=== PATIENT | female | born 1995 ===

== ENCOUNTER 2018-11-09 13:59 | Emergency (ER) | payer OTHER ==
--- NOTE | 2018-11-09 14:39 | UC ---
Dizzy HPI HPI Summary: Patient is a 23yo female presenting with dizziness and nausea that happened while she was at lunch with friends. She stated she first felt a cramping in her lower abdomen and got up to take aleve for the pain. She rated the pain 6/ 10 and described it as a sharp pain. When she sat down again, she says her vision went blurry and she saw spots and became lightheaded. She did not lose consciousness or hit her head. She did not drive herself here. She states the initial pain felt like menstrual cramps or something similar to the ovarian cysts she has had in the past. Patient says she thinks her LMP was November 2017. Her OBGYN put her on a control pill and she skips her periods every month with that. She had similar symptoms of a cyst last month and was seen at [facility] where they gave her a referral to an OBGYN at [facility] to have an ultrasound done. That appointment is scheduled for next Tuesday. Her pain and nausea have since resolved. Patient states she ate breakfast and lunch today and says she is well hydrated. She denies headache and fever. She denies vomiting and changes in BMs. Denies burning, frequency, urgency with urination. Denies any sexual activity or possibility of . - History Of Current Complaint Chief Complaint: UCAbdominalPain Stated Complaint: NAUSEOUS Time Seen by Provider: 11/09/18 14:08 Hx Obtained From: Patient Hx Last Menstrual Period: bcp Onset/Duration: Sudden Onset Severity Initially: Mild Severity Currently: Mild Pain Intensity: 1 Pain Scale Used: 0-10 Numeric Associated Signs And Symptoms: Negative: SOB, Palpitations - Allergies/Home Medications Allergies/Adverse Reactions: Allergies Allergy/AdvReac Type Severity Reaction Status Date / Time No Known Allergies Allergy Verified 11/09/18 14:07 Home Medications: Home Medications Norethindr/Eth Estradiol(Nf) [Lo Loestrin Fe (NF)] 1 tab PO DAILY 11/09/18 [ History Confirmed 11/09/18] PMH/Surg Hx/FS Hx/Imm Hx GI/ History: Other - ovarian cysts - Surgical History Surgical History: Yes Surgery Procedure, Year, and Place: wisdom teeth - Family History Known Family History: Positive: Unknown - Social History Alcohol Use: None Substance Use Type: None Smoking Status (MU): Never Smoked Tobacco Review of Systems All Other Systems Reviewed And Are Negative: No Constitutional: Negative: Fever, Chills, Fatigue Eyes: Positive: Blurred Vision ENT: Positive: Negative Respiratory: Negative: Shortness Of Breath Cardiovascular: Negative: Palpitations, Chest Pain Gastrointestinal: Positive: Abdominal Pain - lower midline pelvic pain, Nausea. Negative: Vomiting, Diarrhea Genitourinary: Negative: Dysuria, Hematuria, Frequency, Urgency, Vaginal/Penile Burning, Vaginal/Penile Itching, Vaginal/Penile Discharge, Vaginal/Penile Pain, Vaginal/Penile Tenderness, Abnormal Bleeding Neurological: Negative: Headache, Weakness Physical Exam Triage Information Reviewed: Yes Appearance: Well-Appearing, No Pain Distress, Thin Vital Signs: Initial Vital Signs Temp 98 F 11/09/18 14:02 Pulse 78 11/09/18 14:02 Resp 16 11/09/18 14:02 BP 104/68 11/09/18 14:02 Pulse Ox 100 11/09/18 14:02 Vital Signs Reviewed: Yes Eyes: Positive: Conjunctiva Clear ENT Exam: Normal Neck exam: Normal Neck: Positive: Supple, Nontender, No Lymphadenopathy Respiratory Exam: Normal Respiratory: Positive: Lungs clear, Normal breath sounds Cardiovascular Exam: Normal Cardiovascular: Positive: RRR Abdomen Description: Positive: Nontender, No Organomegaly, Soft. Negative: CVA Tenderness (R), CVA Tenderness (L), Distended, Guarding, McBurney's Point Tenderness Bowel Sounds: Positive: Present Dizzy Course/Dx - Course Course Of Treatment: Discussed with patient that her pain could be caused by an ovarian cyst and was offered an ultrasound. She denied the US, stating she has an appointment next week with a [facility] OBGYN for an ultrasound. Discussed UA results with patient and the low concern for a UTI. She denied wanting any antibiotics for a potential UTI starting. After discussing normal physical exam findings and stable vital signs, including orthostatics, she is comfortable going home, especially since pain has subsided. She was encouraged to attend her OBGYN appointment next week for further follow up. Patient told to return or go to the emergency room if her symptoms persist or worsen. Patient also told to return or go to the ER if she notices new symptoms, or experiences fever, loss of consciousness, nausea, or vomiting. - Differential Dx/Diagnosis Provider Diagnosis: Abdominal pain Discharge ED - Sign-Out/Discharge Documenting (check all that apply): Patient Departure All imaging exams completed and their final reports reviewed: No Studies - Discharge Plan Condition: Stable Disposition: HOME Patient Education Materials: Abdominal Pain (ED) Referrals: Swathi Augustin NP [Primary Care Provider] - Additional Instructions: Be sure to attend your OBGYN appointment next week for further follow up. Return or go to the emergency room if your symptoms persist or worsen. Return or go to the ER if you notice new symptoms, or you experience fever, loss of consciousness, nausea, or vomiting. - Billing Disposition and Condition Condition: STABLE Disposition: Home
[2018-11-09 15:04] VITALS: BP 106/63
== END 2018-11-09 15:30 | disposition home or self-care (01) ==
LOC: UCEAST 13:59
DX: R10.30 Lower abdominal pain, unspecified (principal); R42 Dizziness and giddiness
CPT/HCPCS: 81003; 84702; 87086; 99201; G0463